=== PATIENT | female | born 1945 | race Caucasian/White ===

== ENCOUNTER → 2017-04-24 | Outpatient (CLI) | payer OTHER ==
[~2017-04-24] MED LIST: ACCUNEB SO1.25 MG/1 INH; ADULT ASPIRIN R81 MG PO; ALBUTEROL2.5 MG/31 INH; CELEXA20 MG PO; GUAIFENESIN DM S5 ML PO; LOSARTAN-HCTZ1 EAC1 PO; PRADAXA150 MG PO; RED YEAST RICE600 MG PO; TRELEGY ELLIPT1 EACH IH; VENTOLIN HFA 1818 GM INH; XYZAL5 MG PO
== END ==
LOC: RAD 15:08
DX: J44.9 Chronic obstructive pulmonary disease, unspecified (principal)

== ENCOUNTER → 2017-09-25 | Outpatient (CLI) | payer OTHER | LOC: RAD 13:57 | DX: J44.9 Chronic obstructive pulmonary disease, unspecified (principal); I51.7 Cardiomegaly ==

== ENCOUNTER 2017-10-04 16:53 | Inpatient (IN) | payer OTHER ==
[~2017-10-04] VITALS: Ht 165.1 cm; Wt 98.9 kg
--- NOTE | ~2017-10-04 | HC ---
[facility] [place] [address] CONSULTATION Name: ANITHA MIRANDA Patty Room #: 349-I ADM IN .R.#: [id number] Admission: 10/04/17 Attend Phys: Abdelrahman Lehman MD Discharge: Date of : 49 Report #: [id number] THIS REPORT FOR: //name// CC: Abdelrahman Levi TYPE OF REPORT: Pulmonary consultation. PRIMARY CARE PHYSICIAN: Susy Gupta M.D. REFERRING PHYSICIAN: Abdelrahman Lehman M.D. REASON FOR REFERRAL: Pulmonary embolus. HISTORY OF PRESENT ILLNESS: The patient is a 72-year-old white female who was recently seen for dyspnea now with a diagnosis of small pulmonary embolus. A pulmonary consultation was requested. The patient has known COPD. She was recently seen by determination Dr. Box in the office. Her baseline FEV1 measures 1.44 liters or 65% predicted. The patient stated that she had a road trip to [place] several weeks ago. When she returned, she noticed that she was more short of breath. Otherwise, she denies any fever, night sweats or chills, chest pain, productive cough or hemoptysis. For this reason, she underwent a CT chest angiogram that was performed on 10/04/2017. The CT chest angiogram performed showed small pulmonary embolus seen in the right middle lobe area. Otherwise, no other pathology was noted. Otherwise, the patient denies any chest pain, night sweats or chills. Dyspnea is somewhat better. Denies any recent hematemesis, hematochezia or melena. The patient denies any past history of venous thromboembolic disease. She denies any family history of venous thromboembolic disease. She is not on any control pills. She is active. She denies any recent surgery or trauma other than a recent travel to [place] few weeks ago. PAST MEDICAL HISTORY: Notable for history of breast cancer, seasonal allergies, COPD, T7 paraspinous soft tissue mass and chronic cough. PAST SURGICAL HISTORY: Status post left mastectomy. ALLERGIES: To YASMIN INHIBITORS, reactions not specified; ALBUTEROL, reactions not specified; BREO, reactions not specified; CODEINE, reactions unknown; DARVON, reactions unknown and SULFA, reactions not specified. [facility] [address] [place] [address] CONSULTATION Name: RUTHJADEN GOMEZOCTAVIO Brambila [facility].#: [id number] Admission: 10/04/17 Attend Phys: Abdelrahman Lehman MD Discharge: Date of : 49 Report #: [id number] FAMILY HISTORY: Noncontributory. Both parents are . SOCIAL HISTORY: The patient has smoked about a pack a day for 22 years, quit in 1985. She denies any alcohol use. REVIEW OF SYSTEMS: As mentioned above, otherwise 10-point system review negative. PHYSICAL EXAMINATION: GENERAL: She is awake and alert, in no apparent distress. VITAL SIGNS: Temperature is 98.3 degrees Fahrenheit, pulse is 88, respiratory rate is 20, blood pressure 140/75 mmHg and saturation 93%. HEENT: Unremarkable. NECK: Supple, without lymphadenopathy or thyromegaly. CHEST: Breath sounds are clear without rales or wheezes. CARDIOVASCULAR: Normal S1 and S2. There is no murmur or gallop. There is no JVD. There is no carotid bruit. Pulses are 2+/4+ bilaterally. ABDOMEN: Soft and nontender. No organomegaly or masses felt. GENITOURINARY: Deferred. RECTAL: Deferred. EXTREMITIES: There is no edema, cyanosis or clubbing. RADIOLOGICAL DATA: CT chest angiogram as mentioned above. Ultrasound of the lower extremities were negative for DVT. Echocardiogram was grossly unremarkable, ejection fraction 60%, LV function was normal, no gross valvular cardiomyopathy. Pulmonary artery pressures were normal. MRI of the spine shows spinal mass at T7-T8, probably schwannoma or neurofibroma and T6 with cerebral hemangioma is also noted. Cervical spine MRI shows central disk protrusion at C5-C6. Otherwise, no other abnormalities. LABORATORY DATA: Electrolytes normal, creatinine 0.7. Albumin 3.1. Liver enzymes are mildly elevated. IMPRESSION: 1. Small pulmonary embolus, right middle lobe. This may explain her dyspnea that occurred recently. The symptoms also started following her travel to [place]. Although the above pulmonary embolus is small, she likely had a moderate sized thrombus, resulting in the dyspnea. I believe anticoagulation is indicated. 2. Chronic obstructive pulmonary disease, moderate severe impairment, baseline FEV1 of 1.1 liter, 49% predicted. 3. Right paraspinous mass, suggest possible schwannoma. She will need neurosurgical evaluation. 4. Remote history of breast cancer, left breast, status post mastectomy. The patient did not receive any chemo or hormonal adjuvant therapy. [address] [address] CONSULTATION Name: ANITHA MIRANDA Room #: 349-I ADM IN M.R.#: [id number] Admission: 10/04/17 Attend Phys: Abdelrahman Lehman MD Discharge: Date of : 49 Report #: [id number] RECOMMENDATIONS: The patient appeared to have a provoked pulmonary embolus based on a travel history. I would recommend anticoagulation for at least 3 months. Continue bronchodilators. I recommend anticoagulation at least 3-6 months depending on clinical response. Continue bronchodilators for COPD. Thank you for this consultation. <ELECTRONICALLY SIGNED> By: Frank Levi MD 10/06/17 [id number] Frank Levi MD /nt
[2017-10-04 17:20] VITALS: BP 102/61
[2017-10-04] MEDS ORDERED: LOSARTAN-HCTZ1 EAC1 PO (17:44)
[2017-10-04] MEDS ORDERED: CELEXA20 MG PO (17:45)
[2017-10-04] MEDS ORDERED: ADULT ASPIRIN R81 MG PO (17:48)
[2017-10-04] MEDS ORDERED: XYZAL5 MG PO (17:49)
[2017-10-04] MEDS ORDERED: RED YEAST RICE600 MG PO (17:50)
[2017-10-04] MEDS ORDERED: TRELEGY ELLIPT1 EACH IH (17:53)
[2017-10-04] MEDS ORDERED: VENTOLIN HFA 1818 GM INH (17:55)
[2017-10-04] MEDS ORDERED: ACCUNEB SO1.25 MG/1 INH (17:55)
[2017-10-04] MEDS ORDERED: ALBUTEROL2.5 MG/31 INH (17:56)
[2017-10-04 18:14] LABS: HEMATOCRIT 36.2 % (37.0-47.0); HEMOGLOBIN 12.5 gm/dL (12.0-15.0); MCHC 34.4 g/dL (28.0-37.0); MCV 87.2 fL (80.0-100.0); RBC 4.15 mil/uL (4.20-5.00); RDW 13.9 % (10.5-14.5); WBC 7.8 thou/uL (4.0-11.0)
[2017-10-04 18:16] LABS: CALCIUM 7.9 mg/dL (8.5-10.1); CREATININE 0.7 mg/dL (0.6-1.0); POTASSIUM 3.7 mmol/L (3.5-5.1)
[2017-10-04 18:22] LABS: ALBUMIN 3.1 g/dL (3.4-5.0); TOTAL BILIRUBIN 0.6 mg/dL (<0.1-1.0); TOTAL PROTEIN 6.2 g/dL (6.4-8.2)
[2017-10-04 18:26] LABS: APTT 23.8 Seconds (24.5-32.8)
[2017-10-04 19:33] VITALS: BP 122/75
[2017-10-05 03:23] VITALS: BP 119/70
[2017-10-05 08:23] VITALS: BP 122/75
[2017-10-05 11:38] VITALS: BP 140/75
[2017-10-05 15:52] VITALS: BP 158/132
[2017-10-05 16:05] VITALS: BP 125/73
[2017-10-05 19:00] VITALS: BP 141/80
[2017-10-06 03:00] VITALS: BP 134/73
[2017-10-06 07:26] VITALS: BP 102/64
[2017-10-06 07:59] LABS: HEMATOCRIT 38.8 % (37.0-47.0); HEMOGLOBIN 13.1 gm/dL (12.0-15.0); MCH 29.9 pg (26.0-34.0); MCHC 33.9 g/dL (28.0-37.0); MCV 88.3 fL (80.0-100.0); RBC 4.39 mil/uL (4.20-5.00); RDW 14.3 % (10.5-14.5); WBC 7.4 thou/uL (4.0-11.0)
[2017-10-06 08:10] LABS: CALCIUM 9.3 mg/dL (8.5-10.1); CREATININE 0.8 mg/dL (0.6-1.0); POTASSIUM 3.7 mmol/L (3.5-5.1)
[2017-10-06 16:46] VITALS: BP 115/66
[2017-10-06 20:40] VITALS: BP 130/77
[2017-10-07 05:10] VITALS: BP 117/71
[2017-10-07 07:15] VITALS: BP 116/73
[2017-10-07] MEDS ORDERED: GUAIFENESIN DM S5 ML PO (08:25)
[2017-10-07] MEDS ORDERED: PRADAXA150 MG PO (08:25)
[2017-10-07 09:43] VITALS: BP 116/73
== END 2017-10-07 10:06 | disposition home or self-care (01) | DRG 176 ==
LOC: 3W 16:53
PROVIDERS: Hospitalist; Internal Medicine Pulmonary Disease
DX: I26.99 Other pulmonary embolism without acute cor pulmonale (principal); I10 Essential (primary) hypertension; F32.9 Major depressive disorder, single episode, unspecified; D36.14 Benign neoplasm of peripheral nerves and autonomic nervous system of thorax; J44.9 Chronic obstructive pulmonary disease, unspecified; Z87.891 Personal history of nicotine dependence; Z85.3 Personal history of malignant neoplasm of breast; Z90.12 Acquired absence of left breast and nipple; Z88.2 Allergy status to sulfonamides; Z88.5 Allergy status to narcotic agent; Z88.8 Allergy status to other drugs, medicaments and biological substances
CPT/HCPCS: 10779

== ENCOUNTER → 2018-02-06 | Outpatient (CLI) | payer OTHER ==
[2018-02-06 11:23] LABS: CREATININE 0.8 mg/dL (0.6-1.0)
== END ==
LOC: CAT 10:37
PROVIDERS: Pediatrics
DX: I27.82 Chronic pulmonary embolism (principal); K44.9 Diaphragmatic hernia without obstruction or gangrene; M47.814 Spondylosis without myelopathy or radiculopathy, thoracic region

== ENCOUNTER → 2018-07-23 | Outpatient (CLI) | payer OTHER ==
[2018-07-23 09:31] LABS: CREATININE 0.9 mg/dL (0.6-1.0)
== END ==
LOC: CAT 07-22 10:06
PROVIDERS: Pediatrics
DX: I27.82 Chronic pulmonary embolism (principal); R06.00 Dyspnea, unspecified; Z79.899 Other long term (current) drug therapy

== ENCOUNTER → 2018-12-05 | Outpatient (CLI) | payer OTHER | LOC: RAD 08:47 | DX: R05 Cough (principal); R06.02 Shortness of breath; Z88.2 Allergy status to sulfonamides; Z88.5 Allergy status to narcotic agent; Z88.8 Allergy status to other drugs, medicaments and biological substances ==

== ENCOUNTER → 2020-12-12 | Outpatient (CLI) | payer OTHER | LOC: RAD 12:23 | PROVIDERS: ATTEND Pediatrics | DX: R06.00 Dyspnea, unspecified (principal); M19.011 Primary osteoarthritis, right shoulder ==